=== PATIENT | male | born 1960 | race Two or more races ===

== ENCOUNTER 2018-10-28 04:41 | Emergency (ER) | payer OTHER ==
[~2018-10-28] VITALS: Ht 182.9 cm; Wt 70.3 kg
[2018-10-28] MEDS ORDERED: ANUSOL-HC30 G2 TOP (05:31)
[2018-10-28] MEDS ORDERED: KETO10TA2 PO (05:31)
== END 2018-10-28 06:20 | disposition home or self-care (01) ==
LOC: ER 04:41
DX: K64.4 Residual hemorrhoidal skin tags (principal)